=== PATIENT | male | born 1980 | race Caucasian/White ===

== ENCOUNTER 2021-10-28 00:45 | Emergency (ER) | payer SELFPAY ==
[~2021-10-28] VITALS: Ht 162.6 cm; Wt 68.0 kg
[2021-10-28 01:15] VITALS: BP 132/94
--- NOTE | 2021-10-28 01:18 | NUR ---
TO LOBBY A/W BED AMBULATORY
--- NOTE | 2021-10-28 02:18 | NUR ---
SEEN AND EXAMINED BY GONZÁLEZ
[2021-10-28] MEDS ORDERED: ONDANSETRON 4 MG/2 ML VIAL IVP ONE (02:25)
[2021-10-28] MEDS ORDERED: NACL 0.9% 1,000 ML IV ONE (02:25)
[2021-10-28] MEDS ORDERED: MORPHINE SULFATE 4 MG/ML SYR IVP ONE (02:25)
--- NOTE | 2021-10-28 02:32 | NUR ---
PT TAKEN TO BED 6.
--- NOTE | 2021-10-28 02:41 | NUR ---
LAB AT BEDSIDE
[2021-10-28 02:48] LABS: BASOPHILS % (AUTO) 0.4 % (0.0-2.0); EOSINOPHILS # (AUTO) 0.1 K/uL (0-0.4); EOSINOPHILS % (AUTO) 0.9 % (0.0-4.0); HEMATOCRIT 45.8 % (36-52); HEMOGLOBIN 15.9 g/dL (12.0-18.0); LYMPHOCYTES # (AUTO) 2.1 K/uL (2.0-11.5); LYMPHOCYTES % (AUTO) 18.2 % (20.5-51.1); MEAN CORPUSCULAR HEMOGLOBIN 32 pg (27-31); MEAN CORPUSCULAR HGB CONC 35 g/dL (33-37); MEAN CORPUSCULAR VOLUME 91.8 fL (80-94); MONOCYTES % (AUTO) 8.8 % (1.7-9.3); NEUTROPHILS # (AUTO) 8.3 K/uL (1.8-7.7); NEUTROPHILS % (AUTO) 71.7 % (42.2-75.2); PLATELET COUNT (AUTO) 260 K/uL (140-450); RED BLOOD CELL COUNT(AUTO) 4.99 MIL/uL (4.20-6.10); RED CELL DISTRIBUTION WIDTH 13.2 % (11.6-13.7); WHITE BLOOD COUNT (AUTO) 11.5 K/uL (4.8-10.8)
--- NOTE | 2021-10-28 03:48 | NUR ---
CALLED PD AND MADE AWARE OF NOTE THAT PATIENT WROTE ON DOLLAR SIGN. STATED THEY WOULD SEND PD OVER.
--- NOTE | 2021-10-28 05:03 | NUR ---
pt was told to sit and wait for pd. pt sitting on chair. pt keeps looking behind and sats he needs to get out
[2021-10-28 05:12] LABS: BARBITURATE, URINE NEGATIVE ng/ml (NEG <=200)
[2021-10-28 05:13] LABS: BENZODIAZEPINE, URINE NEGATIVE ng/mL (NEG <=200); CANNABINOID, URINE NEGATIVE ng/mL (NEG <=50); COCAINE, URINE NEGATIVE ng/mL (NEG <=300); PHENCYCLIDINE SCREEN,URINE NEGATIVE ng/mL (NEG <=25)
[2021-10-28 05:14] LABS: OPIATE, URINE POSITIVE ng/mL (NEG <=2000)
[2021-10-28 05:26] LABS: ALBUMIN 3.6 g/dL (3.4-5.0); ANION GAP 16.4 (8-16); CARBON DIOXIDE 23.1 mmol/L (21-32); CREATININE 0.9 mg/dL (0.6-1.3); POTASSIUM 3.5 mmol/L (3.5-5.1); TOTAL BILIRUBIN 0.4 mg/dL (0.0-1.0)
[2021-10-28 05:30] VITALS: BP 140/84
--- NOTE | 2021-10-28 05:30 | NUR ---
Patient discharged with v/s stable. Written and verbal after care instructions given and explained. Patient verbalized understanding. Ambulatory with steady gait. All questions addressed prior to discharge. Advised to follow up with PMD.
== END 2021-10-28 05:30 | disposition home or self-care (01) ==
LOC: MED 00:45
DX: K29.20 Alcoholic gastritis without bleeding (principal); Z90.49 Acquired absence of other specified parts of digestive tract
CPT/HCPCS: 36415; 80053; 80305; 83690; 85025; 96361; 96374; 96375; 99284; G0482; J2270; J2405; J7030